=== PATIENT | male | born 1955 | race Asian ===

== ENCOUNTER 2018-09-13 11:34 | Emergency (ER) | payer MEDICAID ==
[~2018-09-13] VITALS: Ht 180.3 cm; Wt 84.1 kg
[~2018-09-13 11:34] MED LIST: BENA20TA10 PO; OLAN15TA2 PO; VALS1TAB50 PO
[2018-09-13] MEDS ORDERED: TOPI25 PO (12:11)
[2018-09-13] MEDS ORDERED: METO-558 PO (12:11)
[2018-09-13] MEDS ORDERED: ATOR20TA86 PO (12:11)
[2018-09-13] MEDS ORDERED: ASPI81 PO (12:11)
[2018-09-13] MEDS ORDERED: LISI-662 PO (12:11)
[2018-09-13] MEDS ORDERED: ACETAMINOPHEN 500 MG TABLET PO ONE (12:45)
[2018-09-13] MEDS ORDERED: METOPROLOL TARTRATE 50 MG TABLET PO ONE (12:45)
[2018-09-13] MEDS ORDERED: METO25XL PO (12:47)
[2018-09-13 13:54] VITALS: BP 154/95
== END 2018-09-13 14:24 | disposition home or self-care (01) ==
LOC: EMS 11:36
DX: I10 Essential (primary) hypertension (principal); R51 Headache; F31.9 Bipolar disorder, unspecified; F20.9 Schizophrenia, unspecified; Z79.82 Long term (current) use of aspirin
CPT/HCPCS: 93005

== ENCOUNTER 2020-10-06 08:59 | Emergency (ER) | payer MEDICARE, MEDICAID ==
[~2020-10-06] VITALS: Ht 180.3 cm; Wt 82.7 kg
[~2020-10-06 08:59] MED LIST changes: +ASPI-728 PO; +ATOR20TA86 PO; -BENA20TA10 PO; +METO25XL PO; -OLAN15TA2 PO; -VALS1TAB50 PO
[2020-10-06] MEDS ORDERED: RISP2TAB45 PO (09:06)
[2020-10-06] MEDS ORDERED: BENZ1TAB10 PO (09:06)
[2020-10-06] MEDS ORDERED: DOXA2TAB PO (09:06)
[2020-10-06] MEDS ORDERED: TRAZ-257 PO (09:06)
[2020-10-06] MEDS ORDERED: HYDR-1475 PO (09:06)
[2020-10-06] MEDS ORDERED: AMLO-257 PO (09:06)
[2020-10-06] MEDS ORDERED: DIPH25CA85 PO (09:06)
[2020-10-06 09:45] LABS: BASOPHILS % (AUTO) 0.5 % (0.0-2.0); EOSINOPHILS % (AUTO) 1.3 % (1.0-6.0); HEMATOCRIT 44.1 % (41-53); HEMOGLOBIN 14.7 g/dL (13.5-17.5); LYMPHOCYTES # (AUTO) 0.9 K/uL (1.0-4.8); LYMPHOCYTES % (AUTO) 22.5 % (22.0-44.0); MEAN CORPUSCULAR HEMOGLOBIN 29.8 pg (26.0-34.0); MEAN CORPUSCULAR HGB CONC 33.5 G/dL (31.0-37.0); MEAN CORPUSCULAR VOLUME 89 fL (80-100); MONOCYTES # (AUTO) 0.3 K/uL (0.1-1.0); MONOCYTES % (AUTO) 8.2 % (2.0-9.0); NEUTROPHILS # (AUTO) 2.8 K/uL (1.8-7.7); NEUTROPHILS % (AUTO) 67.5 % (40.0-70.0); PLATELET COUNT (AUTO) 149 K/uL (150-450); RED BLOOD CELL COUNT(AUTO) 4.94 MIL/uL (4.50-5.90); RED CELL DISTRIBUTION WIDTH 13.5 % (11.5-14.5)
[2020-10-06 09:54] LABS: ANION GAP 9 mmol/L (8-16); CALCIUM, TOTAL 9.5 mg/dL (8.8-10.5); CARBON DIOXIDE 33 mmol/L (22-29); CHLORIDE 102 mmol/L (98-107); CREATININE 0.92 mg/dL (0.60-1.30); GLOMERULAR FILTR. RATE CALC > 60 mL/min (>60); GLUCOSE,RANDOM 122 mg/dL (70-110); SODIUM SERUM 144 mmol/L (136-145); UREA NITROGEN, BLOOD 17 mg/dL (7-18)
[2020-10-06 10:15] VITALS: BP 127/81
[2020-10-06] MEDS ORDERED: POTASSIUM CHLORIDE 10% 40 MEQ/30 ML LIQUID UDCUP PO ONE (10:15)
== END 2020-10-06 11:00 | disposition home or self-care (01) ==
LOC: EMS 08:59
DX: F41.9 Anxiety disorder, unspecified (principal); E87.6 Hypokalemia; R00.0 Tachycardia, unspecified; F31.9 Bipolar disorder, unspecified; F20.9 Schizophrenia, unspecified
CPT/HCPCS: 93005; 99284

== ENCOUNTER → 2022-04-13 | Emergency (ER) | payer MEDICARE, MEDICAID ==
[~2022-04-13] VITALS: Ht 180.3 cm; Wt 81.8 kg
[~2022-04-13] MED LIST changes: +AMLO-257 PO; -ASPI-728 PO; -ATOR20TA86 PO; +ATOR40TA28 PO; +BENZ1TAB96 PO; +DIPH25CA85 PO; +DOXA2TAB86 PO; +GABA-529 PO; +HYDR25TA2 PO; +LISI-894 PO; -METO25XL PO; +PALI3TAB14 PO; +RISP2TAB45 PO; +SLOWK8 PO; +SODIUM CHLORIDE 0.9% 1,000 ML IV ONE; +TRAZ-257 PO
[2022-04-13 19:13] LABS: BASOPHILS % (AUTO) 0.5 % (0.0-2.0); EOSINOPHILS % (AUTO) 0.2 % (1.0-6.0); HEMATOCRIT 38.7 % (41-53); HEMOGLOBIN 13.1 g/dL (13.5-17.5); LYMPHOCYTES # (AUTO) 0.5 K/uL (1.0-4.8); LYMPHOCYTES % (AUTO) 8.3 % (22.0-44.0); MEAN CORPUSCULAR HEMOGLOBIN 29.8 pg (26.0-34.0); MEAN CORPUSCULAR HGB CONC 33.8 G/dL (31.0-37.0); MEAN CORPUSCULAR VOLUME 88 fL (80-100); MONOCYTES # (AUTO) 0.3 K/uL (0.1-1.0); MONOCYTES % (AUTO) 5.2 % (2.0-9.0); NEUTROPHILS # (AUTO) 5.4 K/uL (1.8-7.7); PLATELET COUNT (AUTO) 158 K/uL (150-450); RED BLOOD CELL COUNT(AUTO) 4.39 MIL/uL (4.50-5.90); RED CELL DISTRIBUTION WIDTH 13.5 % (11.5-14.5)
[2022-04-13 19:14] LABS: NEUTROPHILS % (AUTO) 85.8 % (40.0-70.0)
[2022-04-13 19:21] LABS: CALCIUM, TOTAL 8.1 mg/dL (8.8-10.5); CREATININE 1.38 mg/dL (0.60-1.30); POTASSIUM 3.1 mmol/L (3.5-5.1)
[2022-04-13 19:28] LABS: ALBUMIN 3.7 g/dL (3.4-5.0); BILIRUBIN,TOTAL 0.6 mg/dL (0.1-1.0); TOTAL PROTEIN, SERUM 6.3 g/dL (6.4-8.2)
[2022-04-13 20:48] VITALS: BP 112/75
[2022-04-13 20:56] LABS: APPEARANCE,URINE CLEAR (CLEAR); BILIRUBIN,URINE NEGATIVE (NEGATIVE); GLUCOSE, URINE (UA) NEGATIVE (NEGATIVE); KETONES,URINE NEGATIVE (NEGATIVE); LEUKOCYTE ESTERASE ,URINE NEGATIVE (NEGATIVE); NITRATE,URINE NEGATIVE (NEGATIVE); OCCULT BLOOD,URINE NEGATIVE (NEGATIVE); PH,URINE 6.5 (5.0-8.0); PROTEIN,URINE NEGATIVE (NEGATIVE); SPECIFIC GRAVITIY, URINE 1.011 (1.003-1.030); UROBILINOGEN,URINE <=1.0 mg/dL (<=1.0)
== END | disposition still patient (30) ==
LOC: EMS 17:35
DX: R42 Dizziness and giddiness (principal); E86.0 Dehydration; I95.2 Hypotension due to drugs; E86.1 Hypovolemia; F31.9 Bipolar disorder, unspecified; I10 Essential (primary) hypertension; F20.9 Schizophrenia, unspecified
CPT/HCPCS: 99285; 70450; 96360; 71045; 80053; 81003; 82550; 83880; 84484; 85025; 36415; 72125; 93005; J7030